=== PATIENT | female | born 1960 | race African-American/Black ===

== ENCOUNTER 2020-11-09 14:27 | Inpatient (IN) ==
[2020-11-10] MEDS ORDERED: Ipratropium/Albuterol Neb 3 ML IH PRN (14:31)
[2020-11-10] MEDS ORDERED: *HR* OxyCODONE Immed Rel 5 MG TABLET PO PRN (15:05)
[2020-11-10] MEDS: Gabapentin 300 MG CAPSULE PO SCH ×2 (16:10→20:28)
[2020-11-10] MEDS: *HR* OxyCODONE Immed Rel 5 MG TABLET PO PRN (16:10)
[2020-11-10] MEDS: Nicotine 14 MG PATCH.TD24 TD SCH (16:11)
[2020-11-10] MEDS: *HR* Rivaroxaban 10 MG TABLET PO SCH (16:11)
[2020-11-11] MEDS: *HR* OxyCODONE Immed Rel 5 MG TABLET PO PRN ×2 (03:48→17:17)
[2020-11-11 05:22] LABS: Basophils % 0.8 %; Eosinophils # 0.4 K/mcL (0.0-0.6); Eosinophils % 8.4 %; Hematocrit 31.5 % (35.3-44.9); Hemoglobin 10.1 g/dL (11.5-15.4); Immature Granulocytes % 0.6 % (0-4); Lymphocytes # 1.4 K/mcL (0.6-4.6); Lymphocytes % 25.9 %; Mean Corpuscular HGB Conc 32.1 g/dL (31.6-35.5); Mean Corpuscular Hemoglobin 32.3 pg (28.0-33.3); Mean Corpuscular Volume 100.6 fL (83.0-100.0); Mean Platelet Volume 8.1 fL (9.4-12.4); Monocytes # 0.5 K/mcL (0.0-1.3); Monocytes % 10.1 %; Neutrophils # 2.9 K/mcL (1.6-8.9); Platelet Count 341 K/mcL (140-400); Red Blood Count 3.13 M/mcL (3.82-4.97); Red Cell Distribution Width 16.4 % (11.5-14.5); Segmented Neutrophils % 54.2 %; White Blood Count 5.3 K/mcL (4.3-11.1)
[2020-11-11 05:36] LABS: BUN/Creatinine Ratio 22 (6-26); Blood Urea Nitrogen 14 mg/dL (8-23); Carbon Dioxide 28 mEq/L (23-29); Chloride 103 mEq/L (98-107); Glucose 104 mg/dL (70-105); Osmolality,Calculated 287 (280-300); Potassium 4.3 mEq/L (3.5-5.1); Sodium 138 mEq/L (136-145); eGFR For African Americans > 60 (> 60); eGFR For Non-African Americans > 60 (> 60)
[2020-11-11] MEDS: Gabapentin 300 MG CAPSULE PO SCH ×3 (08:10→20:19)
[2020-11-11] MEDS: Nicotine 14 MG PATCH.TD24 TD SCH (08:11)
[2020-11-11] MEDS: Ibuprofen 400 MG TABLET PO PRN ×2 (10:59→20:20)
[2020-11-11] MEDS: Acetaminophen 325 MG TABLET PO PRN (16:09)
[2020-11-11] MEDS: *HR* Rivaroxaban 10 MG TABLET PO SCH (17:16)
[2020-11-12] MEDS: *HR* OxyCODONE Immed Rel 5 MG TABLET PO PRN ×3 (05:44→19:39)
[2020-11-12] MEDS: Ibuprofen 400 MG TABLET PO PRN ×2 (08:41→16:44)
[2020-11-12] MEDS: Gabapentin 300 MG CAPSULE PO SCH ×3 (08:41→19:38)
[2020-11-12] MEDS: Nicotine 14 MG PATCH.TD24 TD SCH (08:42)
[2020-11-12] MEDS: Acetaminophen 325 MG TABLET PO PRN (14:14)
[2020-11-12] MEDS: *HR* Rivaroxaban 10 MG TABLET PO SCH (16:44)
[2020-11-13] MEDS: *HR* OxyCODONE Immed Rel 5 MG TABLET PO PRN ×3 (03:57→20:22)
[2020-11-13] MEDS: Ibuprofen 400 MG TABLET PO PRN (08:25)
[2020-11-13] MEDS: Nicotine 14 MG PATCH.TD24 TD SCH (08:25)
[2020-11-13] MEDS: Gabapentin 300 MG CAPSULE PO SCH ×3 (08:25→20:21)
[2020-11-13 11:45] LABS: Basophils # 0.1 K/mcL (0.0-0.2); Basophils % 1.3 %; Eosinophils # 0.4 K/mcL (0.0-0.6); Eosinophils % 6.2 %; Hematocrit 34.8 % (35.3-44.9); Hemoglobin 11.1 g/dL (11.5-15.4); Immature Granulocytes % 0.6 % (0-4); Lymphocytes # 1.5 K/mcL (0.6-4.6); Lymphocytes % 23.3 %; Mean Corpuscular HGB Conc 31.9 g/dL (31.6-35.5); Mean Corpuscular Hemoglobin 32.6 pg (28.0-33.3); Mean Corpuscular Volume 102.4 fL (83.0-100.0); Mean Platelet Volume 8.2 fL (9.4-12.4); Monocytes # 0.5 K/mcL (0.0-1.3); Monocytes % 8.4 %; Neutrophils # 3.8 K/mcL (1.6-8.9); Platelet Count 351 K/mcL (140-400); Red Cell Distribution Width 16.4 % (11.5-14.5); Segmented Neutrophils % 60.2 %; White Blood Count 6.3 K/mcL (4.3-11.1)
[2020-11-13 12:00] LABS: BUN/Creatinine Ratio 27 (6-26); Blood Urea Nitrogen 16 mg/dL (8-23); Calcium 8.6 mg/dL (8.6-10.3); Carbon Dioxide 28 mEq/L (23-29); Chloride 101 mEq/L (98-107); Glucose 89 mg/dL (70-105); Osmolality,Calculated 281 (280-300); Potassium 4.9 mEq/L (3.5-5.1); Sodium 135 mEq/L (136-145); eGFR For African Americans > 60 (> 60); eGFR For Non-African Americans > 60 (> 60)
[2020-11-13] MEDS: *HR* Rivaroxaban 10 MG TABLET PO SCH (16:38)
[2020-11-14] MEDS: *HR* OxyCODONE Immed Rel 5 MG TABLET PO PRN ×2 (05:35→16:29)
[2020-11-14] MEDS: Ibuprofen 400 MG TABLET PO PRN ×2 (09:28→20:04)
[2020-11-14] MEDS: Gabapentin 300 MG CAPSULE PO SCH ×3 (09:28→20:04)
[2020-11-14] MEDS: Nicotine 14 MG PATCH.TD24 TD SCH (09:28)
[2020-11-14] MEDS: *HR* Rivaroxaban 10 MG TABLET PO SCH (16:29)
[2020-11-14] MEDS: Doxycycline 100 MG CAPSULE PO SCH (20:04)
[2020-11-15] MEDS: *HR* OxyCODONE Immed Rel 5 MG TABLET PO PRN (05:35)
[2020-11-15] MEDS: Doxycycline 100 MG CAPSULE PO SCH ×2 (07:57→20:06)
[2020-11-15] MEDS: Gabapentin 300 MG CAPSULE PO SCH ×3 (07:57→20:06)
[2020-11-15] MEDS: Nicotine 14 MG PATCH.TD24 TD SCH (07:58)
[2020-11-15] MEDS: Ibuprofen 400 MG TABLET PO PRN ×2 (08:06→16:28)
[2020-11-15] MEDS ORDERED: *HR* OxyCODONE/APAP 5/325 TABLET PO PRN (09:07)
[2020-11-15] MEDS: *HR* OxyCODONE/APAP 5/325 TABLET PO PRN ×2 (11:47→20:06)
[2020-11-15] MEDS: *HR* Rivaroxaban 10 MG TABLET PO SCH (16:21)
[2020-11-16] MEDS: *HR* OxyCODONE/APAP 5/325 TABLET PO PRN ×2 (03:24→12:32)
[2020-11-16] MEDS: Ibuprofen 400 MG TABLET PO PRN (05:47)
[2020-11-16] MEDS: Nicotine 14 MG PATCH.TD24 TD SCH (08:08)
[2020-11-16] MEDS: Gabapentin 300 MG CAPSULE PO SCH (08:08)
[2020-11-16] MEDS: Doxycycline 100 MG CAPSULE PO SCH (08:08)
[2020-11-16 12:34] VITALS: BP 121/73
== END 2020-11-16 13:47 | disposition home health service (06) | DRG 945 ==
LOC: INPGRE 11-10 14:15
PROVIDERS: ADMIT Family Medicine; ATTEND Family Medicine